=== PATIENT | female | born 1970 | race Caucasian/White ===

== ENCOUNTER 2019-01-02 05:26 | Day surgery (SDC) | payer BC, OTHER ==
[2019-01-01 10:08] VITALS: BMI 18.8
[2019-01-02] MEDS ORDERED: ONDANSETRON 4 MG/2 ML VIAL IVPUSH PRN (13:38)
[2019-01-02] MEDS ORDERED: LACTATED RINGERS SOLUTION 1,000 ML IV SCH (13:45)
--- NOTE | 2019-01-02 14:45 | HP ---
History & Physical Update - History History: No Change - Physical Physical: No Change - Assessment Assessment: No Change - Plan Plan: No Change
--- NOTE | 2019-01-02 15:44 | OP ---
Operative Note - Note: Operative Date: 01/02/19 Pre-Operative Diagnosis: Postmenopausal bleeding, postcoital bleeding, endometrial polyp Operation: Hysteroscopy, D&C, polypectomy Findings: Uterine cavity with midline septum traversing ~30% of uterine length. Endometrial polyps w/in right uterine horn. Post-Operative Diagnosis: Same as Pre-op Surgeon: Brendan Schuster Anesthesiologist/OLEO HASHER AND RENDERER: Vinicio Jeffers Anesthesia: General Specimens Removed: Endometrial polyps, endometrial curettings Estimated Blood Loss (mls): 5 Blood Volume Replaced (mls): 0 Fluid Volume Replaced (mls): 500 Operative Report Dictated: Yes
[2019-01-02 17:45] VITALS: TEMP 97.4
[2019-01-02 17:59] VITALS: BP 133/59; PULSE 86
--- NOTE | 2019-01-02 22:42 | OP ---
DATE OF OPERATION: 01/02/2019 PREOPERATIVE DIAGNOSES: Postmenopausal bleeding, postcoital bleeding, endometrial polyp. POSTOPERATIVE DIAGNOSES: Postmenopausal bleeding, postcoital bleeding, endometrial polyp. PROCEDURE: Hysteroscopy, dilatation and curettage, and polypectomy. SURGEON: Brendan Schuster MD LEATHER REPAIRER: None. ANESTHESIOLOGIST: HENRY Leonardo ANESTHESIA: General. COMPLICATIONS: None. ESTIMATED BLOOD LOSS: 5 mL. URINE OUTPUT: Not applicable. INTRAVENOUS FLUIDS: 500 mL. PATHOLOGY: Endometrial polyps, endometrial curettings. FINDINGS: Examination under anesthesia revealed a slightly retroverted, small uterus with no pelvic or adnexal masses. Uterus was noted to be freely mobile within the pelvis. Hysteroscopy revealed a uterine cavity with a midline uterine septum descending from the fundus to approximately 30% of the uterine length. The right uterine horn contained endometrial polyps. Both fallopian tube ostia were visualized. There were no other lesions or masses noted. DESCRIPTION OF PROCEDURE: The patient was met preoperatively. Risks, benefits, and alternatives of surgery were discussed in details. All questions were answered. The consent form was reviewed and signed. The patient verbalized her understanding and requested to proceed with surgery. The patient was brought to the OR with the IV running. She was placed on the surgical table in the supine position. The general anesthesia was achieved without difficulty. The patient was then placed in a dorsal lithotomy position using adjustable Tera stirrups. She was examined with the findings as described above. A timeout procedure was conducted as per standard protocol. The patient was then prepped and draped in the usual sterile fashion. A weighted speculum was introduced inside the vagina with good visualization of the cervix. The cervix was grasped with a single-tooth tenaculum. The cervical os was dilated to accommodate a size 23 Restrepo dilator. A hysteroscope was introduced inside the uterine cavity. Hysteroscopy revealed a uterine cavity with a midline uterine septum descending from the fundus to approximately 30% of uterine length. Uterine polyps were noted within the right horn of the uterus. A Symphion resectoscope was then used to remove all of the polyps. The resectoscope was then removed from the patient. A sharp curettage was performed, and the tissue was sent to pathology for evaluation. All of the instruments were removed from the patient. Sponge, lap, needle counts were correct. Good hemostasis was noted. The patient was returned to supine position. She was transferred to recovery room in stable condition and awake. Audra [id number]
--- NOTE | 2019-01-04 19:01 | PATH ---
Surgical Pathology Report Patient Name: KOBE CABA [facility]. Rec. #: [id number] /Age/Gender: 1970 (Age: 48) / F Account: [id number] Location: [facility] SURGICAL Taken: 01/02/2019 Received: 01/03/2019 Reported: 01/04/2019 Physicians: Brendan Schuster M.D. Specimen(s) Received A: POLYP B: ENDOMETRIAL CURETTINGS Clinical History Postmenopausal bleeding/post-coital bleed, endometrial polyp Final Diagnosis A. POLYP, POLYPECTOMY: FRAGMENTS OF ENDOMETRIAL POLYP. B. ENDOMETRIAL CURETTINGS, DILATION AND CURETTAGE RARE STRIPS OF ENDOMETRIAL GLANDS COMPATIBLE WITH ATROPHIC ENDOMETRIUM IN A CONCORDANT CLINICAL SETTING. FRAGMENTS OF FIBROMUSCULAR TISSUE, BENIGN CERVICAL SQUAMOUS MUCOSA WITH FOCAL ACUTE INFLAMMATION, AND BENIGN ENDOCERVICAL TISSUE Electronically Signed Elayne Pham M.D. Gross Description A. Received in formalin labeled "polyp" are multiple irregular fragments of pink-mendez, mucoid soft tissue measuring 2 x 1.5 x 0.5 cm. Entire specimen is submitted in one cassette. B. Received in formalin labeled "endometrial curettings" are multiple irregular fragments of pink-mendez and hemorrhagic soft tissue measuring 2 x 2 x 0.3 cm. Entire specimen is submitted in one cassette.
== END 2019-01-02 17:55 | disposition home or self-care (01) ==
LOC: JASU-SURG 05:26
PROVIDERS: ATTEND Obstetrics & Gynecology
PROC: 0UB98ZX Excision of Uterus, Via Natural or Artificial Opening Endoscopic, Diagnostic (ICD-10-PCS; principal; 2019-01-02 14:00)
PROC: 0UDB7ZX Extraction of Endometrium, Via Natural or Artificial Opening, Diagnostic (ICD-10-PCS; 2019-01-02 14:00)
DX: N95.0 Postmenopausal bleeding (principal); N93.0 Postcoital and contact bleeding; N84.0 Polyp of corpus uteri
CPT/HCPCS: 36415; 80053; 84702; 85025; 85610; 85730; 86850; 86900; 86901; 88305-TC; 94760